=== PATIENT | female | born 1975 | race Caucasian/White ===

== ENCOUNTER 2019-05-05 22:32 | Emergency (ER) | payer MEDICAID ==
[2019-05-06] MEDS: HYDROCODONE/APAP (5/325) TAB PO (02:19)
[2019-05-06] MEDS: LIDOCAINE 2% (MDV) 20 ML INJ INJ (02:19)
[2019-05-06] MEDS: ACETAMINOPHEN 325 MG TAB PO (02:21)
== END 2019-05-06 02:47 | disposition home or self-care (01) ==
LOC: FTE 22:32
DX: L60.0 Ingrowing nail (principal)
CPT/HCPCS: 11765